=== PATIENT | female | born 1995 | race Caucasian/White ===

== ENCOUNTER 2020-08-14 22:45 | Outpatient (CLI) | payer OTHER ==
[~2020-08-14] VITALS: Ht 165.1 cm; Wt 63.2 kg
[2020-08-14 11:55] VITALS: BP 121/71; PULSE 113; TEMP 98.1
--- NOTE | 2020-08-14 22:45 | NUR ---
Pt arrives on unit ambulatory with spouse. States ctx that began around 2029. Per pt, "urinating a lot of clear urine." Reports GFM, denies vaginal bleeding. Changed into clean gown. EFM and toco applied. VSS. Amniotest negative. SVE per Sidnye Godfrey RN /-3. Admission assessment completed. Pt updated on POC. Bed locked in low position. Call light within reach. No questions or concerns at this time.
== END 2020-08-15 | disposition home or self-care (01) ==
LOC: LDRO 22:45
DX: O26.93 Pregnancy related conditions, unspecified, third trimester (principal); Z3A.36 36 weeks gestation of pregnancy

== ENCOUNTER 2020-08-27 14:45 | Outpatient (CLI) | payer OTHER ==
[~2020-08-27] VITALS: Ht 165.1 cm; Wt 64.5 kg
--- NOTE | 2020-08-27 14:55 | NUR ---
Patient ambulates to LR2 with spouse, changed into gown, FHR/TOCO monitors placed. Patient states "I have been felecia since 0845 this morning, nauseated, diarrhea, tired" , denies leaking of fluid/vaginal bleeding/decreased movement. Plan of care discussed. 1500: SVE-1-2/70/-[address] Stanley called and notified.
[2020-08-27 15:30] VITALS: BP 116/80; PULSE 93; TEMP 98.3
--- NOTE | 2020-08-27 16:02 | NUR ---
MARGARETH Cabral RN 1604: called and updated, discharge order received. 1611: Patient off monitors and discharge instructions given, patient verbalizes understanding. Signs paper. 1620: Patient ambulates off of unit with spouse.
[2020-08-27 16:11] VITALS: BP 110/75; PULSE 105
== END 2020-08-27 16:20 | disposition home or self-care (01) ==
LOC: LDRO 14:45 → LDR 15:10 → LDRO 16:20
DX: O62.9 Abnormality of forces of labor, unspecified (principal); Z3A.37 37 weeks gestation of pregnancy
CPT/HCPCS: OP

== ENCOUNTER 2020-09-01 15:48 | Inpatient (IN) | payer OTHER ==
[2020-09-01] VITALS (16 sets, daily range): BP systolic 100–128; BP diastolic 59–87; PULSE 86–130; TEMP 98.1–98.3
[~2020-09-01] VITALS: Ht 165.1 cm; Wt 64.6 kg
--- NOTE | 2020-09-01 15:50 | NUR ---
1550- 38.4, G2L1 arrives on unit with c/o ctx since 1100. To LDR4 via wheelchair. Oriented to room and plan of care. Patient changes into clean gown. To bed in wedge left position. EFM explained and placed. Patient reports normal movement, and ctx every 6-10min. Patient unsure if ruptured. Denies VB. VS obtained and assessment completed. 1600- Amnitrace negative. SVE 4-5/70/-3, ballotable, BOW palpated. Patient updated on plan of care. Verbalizes understanding. 1624- Dr. Carlson updated on patient. See physician notification.
--- NOTE | 2020-09-01 18:35 | NUR ---
1835 UNCOMFORTABLE WITH CONTRACTIONS. SVE /-2. DR SMITH NOTIFIED AND ORDER TO ADM RECEIVED.
[2020-09-01 19:00] LABS: BASO # 0.1 (0.0-0.2); BASO % 0.4 % (0.0-2.0); EOS # 0.1 (0.0-0.7); EOS % 0.4 % (0-4.0); GRAN # 11.8 (1.4-6.5); GRAN % 79.4 % (42.2-75.2); HEMOGLOBIN 10.7 g/dl (12.5-16.0); LYMPH # 1.9 (1.2-3.4); LYMPH % 12.8 % (20.0-51.0); MEAN CELL VOLUME 84 fl (80.0-100.0); MEAN CORPUSCULAR HEMOGLOBIN 26 pg (27.0-31.0); MEAN CORPUSCULAR HGB CONC 31 g/dl (33.0-37.0); MEAN PLATELET VOLUME 11.4 fl (7.4-10.4); MONO % 6.6 % (1.7-9.3); PLATELET COUNT 236 K/mm3 (130-400); REDCELL DISTRIBUTION WIDTH-CV 15.3 % (11.5-14.5)
[2020-09-01 19:13] LABS: HEMATOCRIT 34.4 % (37.0-47.0)
--- NOTE | 2020-09-01 19:18 | NUR ---
1918 SITTING ON SIDE OF BED FOR EPIDURAL PLACEMENT PER CONSTRUCTION QUALITY CONTROL MANAGER. SEE ANESTH RECORDS FOR MORE INFORMATION.
--- NOTE | 2020-09-01 19:25 | NUR ---
192 GETTING READY TO LAY DOWN AFTER EPID PLACEMENT AND STATES SHE THINKS HER WATER JUST BROKE. 192 SVE 6-7 AND LEAKING CL FLUID. TO LEFT SIDE. OCC VARIABLE DECEL NOTED FROM BASELINE OF 130 TO 70-90 FOR 5-10 SECONDS THEN RETURN TO BASELINE. TURNED TO RIGHT SIDE. 1932 DR SMITH CALLED IN FOR UPDATE AND REPORT GIVEN.
--- NOTE | 2020-09-01 20:06 | NUR ---
2006 VARAIBLE DECEL FROM BASELINE OF 130 TO 60 FOR 10 SEC THEN RETURN TO BL. SVE 9 CM [address] SMITH CALLED FOR DELIVERY. READIED FOR DELIVERY.
--- NOTE | 2020-09-01 20:20 | NUR ---
2019 DR SMITH HERE. COMPLETE. INSTRUCTED TO PUSH WITH CONTRACTIONS 2026 DEL VIABLE MALE OVER 1ST DEGREE LAC. APGARS . IV CONTS TO INFUSE
--- NOTE | 2020-09-01 22:30 | NUR ---
2230 IV TO INT. EPID DC'D. UP TO BR WITH ASSIST AND VOIDED 200CC. PERICARE DONE. AMB TO 215 AND XENIA WELL.
[2020-09-01 23:07] LABS: TRICYCLIC ANTIDEPRESS URINE NEGATIVE
[2020-09-02 00:45] VITALS: BP 100/59; PULSE 130; TEMP 99.4
[2020-09-02 04:30] VITALS: BP 110/70; PULSE 109; TEMP 98.3
[2020-09-02 07:03] VITALS: BP 107/75; PULSE 95; TEMP 98
[2020-09-02] MEDS ORDERED: IBU600 MG PO (11:21)
--- NOTE | 2020-09-02 11:40 | NUR ---
Stores Assistant offered congrats to patient and family.
[2020-09-02 12:00] VITALS: BP 105/66; PULSE 90
[2020-09-02 15:26] VITALS: BP 104/58; PULSE 98; TEMP 98
[2020-09-02 20:15] VITALS: BP 108/68; PULSE 86; TEMP 98.9
--- NOTE | 2020-09-02 21:30 | NUR ---
2129 MOTRIN 600MG PO FOR CRAMPS. DISMISS INSTRUCTIONS GIVEN AND NO QUESTIONS. 2144 DIMISSED TO HOME PER AMB ACC BY AND BABY
== END 2020-09-02 21:45 | disposition home or self-care (01) | DRG 807 ==
LOC: LDRO 15:48 → LDR 15:50 → LDRO 18:40 → OB 21:10
PROVIDERS: Obstetrics & Gynecology; ADMIT Obstetrics & Gynecology
PROC: 10E0XZZ Delivery of Products of Conception, External Approach (ICD-10-PCS; principal; 2020-09-01)
PROC: 0HQ9XZZ Repair Perineum Skin, External Approach (ICD-10-PCS; 2020-09-01)
DX: O99.02 Anemia complicating childbirth (principal); Z37.0 Single live birth; O70.0 First degree perineal laceration during delivery; Z3A.38 38 weeks gestation of pregnancy; D64.9 Anemia, unspecified
CPT/HCPCS: J2590; J7120

== ENCOUNTER → 2020-09-01 | Outpatient (CLI) | payer OTHER ==
[~2020-09-01] MED LIST: IBU600 MG PO
== END ==
LOC: ZCOL.LAB
DX: Z20.822 Contact with and (suspected) exposure to COVID-19 (principal)

== ENCOUNTER 2022-04-09 17:19 | Inpatient (IN) | payer OTHER ==
[2022-04-09] VITALS (21 sets, daily range): BP systolic 96–134; BP diastolic 54–81; PULSE 93–131; TEMP 98
[~2022-04-09] VITALS: Ht 162.6 cm; Wt 66.5 kg
[2022-04-09] MEDS ORDERED: PROTONIX20 MG PO (17:41)
[2022-04-09 18:17] LABS: BASO # 0.1 K/mm3 (0.0-0.2); BASO % 0.5 % (0.0-2.0); EOS # 0.1 K/mm3 (0.0-0.7); EOS % 0.5 % (0.0-4.0); GRAN # 8.3 K/mm3 (1.4-6.5); GRAN % 75.8 % (42.2-75.2); LYMPH # 1.8 K/mm3 (1.2-3.4); LYMPH % 16.9 % (20.0-51.0); MEAN CELL VOLUME 80 fl (80.0-100.0); MEAN CORPUSCULAR HGB CONC 31 g/dl (33.0-37.0); MEAN PLATELET VOLUME 11.3 fl (7.4-10.4); MONO # 0.6 K/mm3 (0.1-0.6); MONO % 5.8 % (1.7-9.3); PLATELET COUNT 209 K/mm3 (130-400); RED BLOOD COUNT 3.15 M/mm3 (4.10-5.30); REDCELL DISTRIBUTION WIDTH-CV 17.1 % (11.5-14.5)
[2022-04-09 18:18] LABS: HEMATOCRIT 25.1 % (37.0-47.0); HEMOGLOBIN 7.7 g/dl (12.5-16.0); MEAN CORPUSCULAR HEMOGLOBIN 24 pg (27-31)
--- NOTE | 2022-04-09 18:48 | NUR ---
182 - Pt requesting epidural at this time. Lactated Ringers bolus started. VINEET Warren notified. 1831 - VINEET Warren at bedside. Epidural procedure, risks, and benefits reviewed. Pt verbalized understanding. 1839 - Pt positioned to edge of bed. 1847 - Test dose by VINEET Warren. Pt denies any adverse reactions. 1849 - Pt repositioned to wedge left for comfort. Safety precautions reviewed. Bed in low and locked position, call light within reach. See anesthesia record.
--- NOTE | 2022-04-09 19:50 | NUR ---
Diallo catheter placed to dependent drainage at this time. Clear, yellow urine out. Secured to leg with statlock. SVE /-2
[2022-04-09 21:22] LABS: TRICYCLIC ANTIDEPRESS URINE NEGATIVE
--- NOTE | 2022-04-09 21:40 | NUR ---
Pt called RN to bedside. States she feels weird and the room is spinning, feels like she can't catch her breath. Pulse ox on, oxygen saturation 100%. HR fluctuating from 120 bpm to 160 bpm, verified by palpation. Pt states she hasn't ever felt like this before. BP 130/81, this RN asks patient if she is very worried or anxious about anything and she states no. Dr. Stanley on unit and updated. Warm blanket brought to patients room and pt states that she thinks it is just a panic attack. Reassurance of maternal and well being offered. Ice chips provided per patients request.
--- NOTE | 2022-04-09 22:00 | NUR ---
Dr. Givens at bedside. Artificial rupture of membranes at this time. Large amount of clear fluid noted. SVE /2. Continue plan of care.
--- NOTE | 2022-04-09 23:07 | NUR ---
2302 - Dr. Givens at bedside, SVE complete/+2. Nursery RN called to bedside. Room set up for delivery. Pt positioned into footplates. Educated on pushing techniques. 2304 - Nursery RNJarod at bedside. 2306 - Spontaneous vaginal delivery of viable boy. stimulated and bulb suctioned by Dr. Givens. Cord clamped x [address] Givens and cut by FOB. to Jarod and to warmer per mother's request. Cord blood obtained. 2309 - Spontaneous delivery of intact placenta. Fundus firm and down 3 from umbilicus. Second degree perineal laceration repaired by Dr. Givens. Epidural off. Pitocin started at 333 mL/hr per protocol. EBL [address] Givens 2314 - Pericare provided. New chux beneath patient. Ice pack to perineum. Pt repositioned in bed for comfort. Plan of care reviewed. recovery started. See physician delivery note.
[2022-04-10] VITALS (8 sets, daily range): BP systolic 109–118; BP diastolic 57–80; PULSE 84–102; TEMP 97.5–98
--- NOTE | 2022-04-10 01:35 | NUR ---
Pt able to lift and hold each leg off of bed for 5 seconds. Pt positioned to sitting on edge of bed. Epidural catheter removed, tip smooth, blue, and intact. Pt able to ambulate to bathroom with standby assistance. Pt able to void 400 mL. Pericare explained and provided. Clean gown on. Mesh panties, peripad, and ice pack applied. Educated on need of 3 measured voids. Pt to wheelchair independently and transferred to room 212 in stable condition with belongings.
--- NOTE | 2022-04-10 09:17 | NUR ---
Initial visit attempt; Patient resting, Pick Remover left card of congratulations for the of their son and information regarding the availability of Spiritual Care at our hospital.
[2022-04-11] MEDS ORDERED: PERCOCET 325 MG1 TA2 PO (08:41)
[2022-04-11] MEDS ORDERED: IBU800 M1 PO (08:41)
[2022-04-11] MEDS ORDERED: IRON TABLETS325 MG PO (08:42)
[2022-04-11 09:15] VITALS: BP 101/70; PULSE 90; TEMP 98
--- NOTE | 2022-04-11 11:56 | NUR ---
environmental maintenance worker consulted with patient's nurse. Nurse states there are no concerns by nursing for social work to see patient.
[2022-04-11 15:54] VITALS: BP 122/76; PULSE 76; TEMP 98.1
== END 2022-04-11 16:30 | disposition home or self-care (01) | DRG 807 ==
LOC: LDRO 17:19 → OB 17:44 → LDR 17:44 → OB 04-10 01:45
PROVIDERS: Obstetrics & Gynecology; ADMIT Obstetrics & Gynecology
PROC: 10E0XZZ Delivery of Products of Conception, External Approach (ICD-10-PCS; principal; 2022-04-09)
PROC: 0KQM0ZZ Repair Perineum Muscle, Open Approach (ICD-10-PCS; 2022-04-09)
PROC: 10907ZC Drainage of Amniotic Fluid, Therapeutic from Products of Conception, Via Natural or Artificial Opening (ICD-10-PCS; 2022-04-09)
DX: O99.02 Anemia complicating childbirth (principal); Z37.0 Single live birth; D64.9 Anemia, unspecified; Z3A.38 38 weeks gestation of pregnancy; K21.9 Gastro-esophageal reflux disease without esophagitis; O99.344 Other mental disorders complicating childbirth; F32.A Depression, unspecified; F41.9 Anxiety disorder, unspecified; O99.62 Diseases of the digestive system complicating childbirth; O70.1 Second degree perineal laceration during delivery; Z53.29 Procedure and treatment not carried out because of patient's decision for other reasons
CPT/HCPCS: J2590; J7120